=== PATIENT | female | born 1990 | race Caucasian/White ===

== ENCOUNTER 2020-04-01 09:09 | Inpatient (IN) | payer MEDICAID, OTHER ==
[~2020-04-01] VITALS: Ht 162.6 cm; Wt 70.5 kg
[2020-04-01 09:35] LABS: Basophils # (auto) 0 10 ^3/uL (0-0.2); Basophils % (auto) 0.3 % (0.0-2.0); Eosinophils # (auto) 0 10 ^3/uL (0-0.8); Eosinophils % (auto) 0.1 % (0.0-7.0); Hematocrit 42.2 % (36.0-46.0); Hemoglobin 14.3 g/dL (12.2-16.2); Lymphocytes % (auto) 11.3 % (10.0-50.0); Mean Corpuscular Hemoglobin 32.7 pg (28.0-32.0); Mean Corpuscular Hgb Conc. 33.9 g/dL (32.0-36.0); Mean Corpuscular Volume 96.4 fL (80.0-100.0); Monocytes # (auto) 0.3 10 ^3/uL (0-1.3); Monocytes % (auto) 3.3 % (0.0-12.0); Neutrophils # (auto) 7.8 10 ^3/uL (1.6-8.6); Platelet Count (auto) 210 10^3/uL (140-450); Red Blood Cells 4.37 10^6/uL (4.0-5.20); Red Cell Distribution Width 12.4 % (11.8-14.3); White Blood Cell 9.1 10^3/uL (4.4-10.8)
[2020-04-01] MEDS ORDERED: SODIUM CHLORIDE 0.9% 1,000 ML IV ONE ×2 (09:45→11:00)
[2020-04-01 09:56] LABS: Albumin 3.9 g/dL (3.4-5.0); Calcium 8.9 mg/dL (8.5-10.1); Potassium 3.5 mmol/L (3.5-5.1)
[2020-04-01 10:00] LABS: BUN/Creatinine Ratio 11.8; Bilirubin, Total 0.6 mg/dL (0.2-1.0); Total Protein 7.6 g/dL (6.4-8.2)
[2020-04-01] MEDS ORDERED: KETOROLAC TROMETH 30 MG/ML 1ML VIAL IV ONE ×2 (10:00→14:00)
[2020-04-01] MEDS ORDERED: ONDANSETRON HCL 4 MG/2 ML VIAL IV ONE (10:00)
[2020-04-01] MEDS ORDERED: cefTRIAXone 1GM/50ML D5W 50 ML IV ONE ×2 (10:45→16:15)
[2020-04-01] MEDS ORDERED: metroNIDAZOLE 500MG/100ML 100 ML IV ONE (10:45)
[2020-04-01 12:00] LABS: Urine Bacteria NONE SEEN /hpf (None Seen); Urine Blood Negative /uL (Negative); Urine Mucus FEW (None Seen); Urine Specific Gravity 1.029 (1.001-1.035); Urine WBC 1 /hpf (0 - 5)
[2020-04-01 12:08] LABS: Alcohol, Urine < 3.0 mg/dL (0-10)
[2020-04-01 12:20] LABS: Barbiturate Scree,Urine NEGATIVE (NEGATIVE); Benzodiazephine Screen, Urine NEGATIVE (NEGATIVE); Cocaine Screen, Urine NEGATIVE (NEGATIVE); Opiate Scree,Urine NEGATIVE (NEGATIVE); Phencyclidine Screen, Urine NEGATIVE (NEGATIVE)
[2020-04-01 12:43] LABS: Cannabinoid Screen, Urine POSITIVE (NEGATIVE)
[2020-04-01 12:44] LABS: Amphetamine Screen, Urine POSITIVE (NEGATIVE)
[2020-04-01] MEDS ORDERED: ACETAMINOPHEN 500 MG TAB PO PRN (16:15)
[2020-04-01] MEDS ORDERED: TEMAZEPAM 15 MG CAP PO PRN (16:15)
[2020-04-01] MEDS: SODIUM CHLORIDE 0.9% 1,000 ML IV SCH ×2 (16:17→21:36)
[2020-04-01] MEDS: PROMETHAZINE HCL 25 MG/ML 1ML IV PRN ×2 (16:28→23:59)
[2020-04-01] MEDS: MORPHINE SULF INJ 2 MG/ML SYRINGE 1ML IV PRN ×2 (16:29→23:58)
--- NOTE | 2020-04-01 19:30 | NUR ---
[facility] admit from ER AZEB ROMAN admitted to [facility]. Patient oriented to BAKARI BALLESTEROS, primary RN, unit, room, bed, and unit policies regarding patient care and visiting hours. Patient weighed by bedscale and encouraged to call if they need something. All questions and concerns addressed, patient verbalized understanding.
[2020-04-01 19:45] VITALS: BP 105/61
[2020-04-01] MEDS: metroNIDAZOLE 500MG/100ML 100 ML IV SCH (21:35)
[2020-04-01] MEDS: FAMOTIDINE 20 MG TAB PO SCH (21:36)
[2020-04-01] MEDS: traMADol HCL 50 MG TAB PO PRN (21:36)
[2020-04-01 22:00] VITALS: BP 105/61
[2020-04-02] MEDS: traMADol HCL 50 MG TAB PO PRN ×2 (04:16→22:16)
[2020-04-02 05:00] VITALS: BP 99/44
--- NOTE | 2020-04-02 05:07 | NUR ---
ROSA CALLS UNIT FOR PATIENT UPDATE COMPLETE SBAR GIVEN INCLUDING PATIENT STATUS, TRENDING VS, LABS, READ IMAGING RESULTS AND PENDING GI CONSULTATION. VERBALIZED UNDERSTANDING PER ROSA KEEP PATIENT NPO AND HE WILL BE IN LATER TODAY TO SEE PATIENT.
[2020-04-02 05:21] VITALS: BP 109/57
[2020-04-02] MEDS: metroNIDAZOLE 500MG/100ML 100 ML IV SCH ×3 (05:49→21:00)
[2020-04-02 07:23] LABS: Albumin 2.7 g/dL (3.4-5.0); Calcium 7.5 mg/dL (8.5-10.1); Potassium 3.5 mmol/L (3.5-5.1)
[2020-04-02 07:26] LABS: Bilirubin, Total 0.3 mg/dL (0.2-1.0); Total Protein 5.6 g/dL (6.4-8.2)
--- NOTE | 2020-04-02 07:30 | NUR ---
Opening Shift Note Assumed care of patient, awake and alert. No S/S of distress/SOB. VERBALIZED ABDOMINAL DISCOMFORT AND SOME PAIN. Instructed on POC and to call for assist PRN, will continue to monitor for changes Q1hr and PRN.
[2020-04-02 09:00] VITALS: BP 104/65
[2020-04-02] MEDS: FAMOTIDINE 20 MG TAB PO SCH ×2 (10:02→21:01)
[2020-04-02] MEDS: cefTRIAXone 1GM/50ML D5W 50 ML IV SCH (10:02)
[2020-04-02] MEDS: SODIUM CHLORIDE 0.9% 1,000 ML IV SCH ×2 (10:03→21:01)
[2020-04-02] MEDS: MORPHINE SULF INJ 2 MG/ML SYRINGE 1ML IV PRN ×3 (11:19→20:50)
[2020-04-02 13:00] VITALS: BP_SYST 96; BP_SYST 98; BP_DIAS 58; BP_DIAS 60
[2020-04-02 13:56] LABS: INR 1.18 (0.9-1.15)
--- NOTE | 2020-04-02 15:53 | NUR ---
DR Bulmaro ODELL AT [facility]. Addendum: 04/02/20 at 1554 by Cally Seymour RN DR ODELL AT [facility] AT 1430
--- NOTE | 2020-04-02 16:04 | NUR ---
assessment re: ss consult positive UDS Patient is a 29 year old female who is alert and oriented. Patients cognitive abilities are intact. Prior to admission patient lived home with family and functioned independently. Patient informed me she is able to care for her own ADLs. Per patient she will return home to her prior living arrangements post discharge and family will transport her home. I informed patient she has a ss consult for history of and current UDS for amphetamines and THC. Patient denies amphetamine use and admits to THC. Patient states she has no problem with smoking marijuana and does not need resources i offered her. I informed patient she has a right to speak to a psychotherapist social worker regarding all care. I informed patient she has a right to participate in any and all discharge planning. Patient does not have a POA and advanced directive. I have offered patient information on POA and advanced directives. I informed the patient the advantages and benefits of having an Advanced Directive. Patient verbalized understanding and agreed to discharge plan. Addendum: 04/02/20 at 1619 by Eli SALVADOR Amended: Links added.
--- NOTE | 2020-04-02 16:52 | NUR ---
AMA TO SMOKE ON FILE
--- NOTE | 2020-04-02 16:52 | NUR ---
tOpening Shift Note Assumed care of patient, awake and alert. No S/S of distress/SOB or pain. Insructed on POC and to call for assist PRN, will continue to monitor for changes Q1hr and PRN. Addendum: 04/02/20 at 1653 by Cally Seymour RN WRONG NOTES
[2020-04-02 17:00] VITALS: BP 98/60
--- NOTE | 2020-04-02 19:46 | NUR ---
Received report from MAJOR Alamo. Pt in bed resting A&o x3, respirations even and unlabored no signs of distress noted. safety checks, bed at lowest position, wheel locked, call light within reach, no clutter on floor
[2020-04-02 21:16] LABS: Urine Bacteria NONE SEEN /hpf (None Seen); Urine Blood Negative /uL (Negative); Urine Mucus FEW (None Seen); Urine Specific Gravity 1.024 (1.001-1.035); Urine WBC 13 /hpf (0 - 5)
[2020-04-02 22:00] VITALS: BP 107/54
[2020-04-02] MEDS: PROMETHAZINE HCL 25 MG/ML 1ML IV PRN (22:14)
[2020-04-03 04:41] VITALS: BP 100/57
[2020-04-03] MEDS ORDERED: DOCUSATE SOD 100 MG CAP PO PRN (06:00)
[2020-04-03] MEDS: traMADol HCL 50 MG TAB PO PRN (06:16)
[2020-04-03] MEDS: metroNIDAZOLE 500MG/100ML 100 ML IV SCH (06:23)
[2020-04-03 06:29] LABS: Basophils # (auto) 0 10 ^3/uL (0-0.2); Eosinophils # (auto) 0.1 10 ^3/uL (0-0.8); Eosinophils % (auto) 2.6 % (0.0-7.0); Hematocrit 30.9 % (36.0-46.0); Hemoglobin 10.7 g/dL (12.2-16.2); Lymphocytes # (auto) 1.3 10 ^3/uL (0.4-5.4); Mean Corpuscular Hemoglobin 33.6 pg (28.0-32.0); Mean Corpuscular Hgb Conc. 34.8 g/dL (32.0-36.0); Mean Corpuscular Volume 96.7 fL (80.0-100.0); Monocytes # (auto) 0.3 10 ^3/uL (0-1.3); Monocytes % (auto) 10.4 % (0.0-12.0); Neutrophils # (auto) 1.5 10 ^3/uL (1.6-8.6); Platelet Count (auto) 169 10^3/uL (140-450); Red Blood Cells 3.19 10^6/uL (4.0-5.20); Red Cell Distribution Width 12.3 % (11.8-14.3); White Blood Cell 3.2 10^3/uL (4.4-10.8)
[2020-04-03 06:43] LABS: Calcium 7.4 mg/dL (8.5-10.1); Potassium 3.3 mmol/L (3.5-5.1)
[2020-04-03 06:45] LABS: BUN/Creatinine Ratio 13.7
--- NOTE | 2020-04-03 07:26 | NUR ---
Report given to MAJOR Lanier. Pt in bed with eyes closed, respirations even and unlabored, face expression relaxed, no signs of distress. Bed at lowest position, wheels locked, call light within reach, floor free of clutter.
[2020-04-03] MEDS: cefTRIAXone 1GM/50ML D5W 50 ML IV SCH (08:58)
[2020-04-03] MEDS: FAMOTIDINE 20 MG TAB PO SCH (08:58)
[2020-04-03 09:00] VITALS: BP 116/66
[2020-04-03] MEDS: SODIUM CHLORIDE 0.9% 1,000 ML IV SCH (10:14)
--- NOTE | 2020-04-03 11:23 | NUR ---
Spoke to Dr. Troy regarding patient wants to discuss about care plan. Per Dr. Troy he will reach dr. Ortiz.
--- NOTE | 2020-04-03 12:03 | NUR ---
AMA Note AZEB ROMAN states they want to leave the hospital Against Medical Advice (AMA). Patient encouraged to stay for further treatment/stabilization. Sydni CUNNINGHAM notified of patient's wishes. Guanako HATHAWAY notified. Patient advised of the risks and benefits of leaving AMA. Patient verbalized understanding. Patient encouraged to return to the ER if symptoms do not improve or worsen.
[2020-04-03] MEDS ORDERED: SENNA 8.6 MG TAB PO SCH (22:00)
[2020-04-04] MEDS ORDERED: GOLYTELY 4L KIT PO ONE (10:00)
== END 2020-04-03 12:20 | disposition left against medical advice (07) | DRG 251 ==
LOC: ER 09:09 → OVERFLOW 09:10 → CENTRAL 19:31
PROVIDERS: ADMIT Internal Medicine; ATTEND Internal Medicine
DX: R10.31 Right lower quadrant pain (principal); E44.0 Moderate protein-calorie malnutrition; K76.0 Fatty (change of) liver, not elsewhere classified; E87.1 Hypo-osmolality and hyponatremia; R16.0 Hepatomegaly, not elsewhere classified; K52.9 Noninfective gastroenteritis and colitis, unspecified; I88.0 Nonspecific mesenteric lymphadenitis; R73.9 Hyperglycemia, unspecified; F12.90 Cannabis use, unspecified, uncomplicated; F15.10 Other stimulant abuse, uncomplicated; Z68.26 Body mass index [BMI] 26.0-26.9, adult; Z80.0 Family history of malignant neoplasm of digestive organs; Z80.41 Family history of malignant neoplasm of ovary; Z98.51 Tubal ligation status
CPT/HCPCS: 36415; 74176; 74181; 76705; 80048; 80053; 80307; 81001; 81025; 82150; 83036; 83605; 83690; 84443; 85025; 85610; 87040; 87086; 96365; 96366; 96368; 96375; 96376; 99291; G0378; J0696; J1885; J2405; J3490

== ENCOUNTER 2022-12-06 11:02 | Emergency (ER) | payer MEDICAID ==
[~2022-12-06] VITALS: Ht 165.1 cm; Wt 74.0 kg
[2022-12-06 11:52] LABS: Urine Bacteria FEW /hpf (None Seen); Urine Blood Negative /uL (Negative); Urine Specific Gravity 1.016 (1.001-1.035); Urine WBC 10 /hpf (0 - 5)
[2022-12-06 11:53] LABS: Basophils # (auto) 0 10 ^3/uL (0-0.2); Basophils % (auto) 0.8 % (0.0-2.0); Eosinophils # (auto) 0.2 10 ^3/uL (0-0.8); Eosinophils % (auto) 2.7 % (0.0-7.0); Hemoglobin 13.6 g/dL (12.2-16.2); Lymphocytes # (auto) 1.7 10 ^3/uL (0.4-5.4); Lymphocytes % (auto) 29.5 % (10.0-50.0); Mean Corpuscular Hemoglobin 32.7 pg (28.0-32.0); Mean Corpuscular Hgb Conc. 33.3 g/dL (32.0-36.0); Mean Corpuscular Volume 98.1 fL (80.0-100.0); Monocytes # (auto) 0.5 10 ^3/uL (0-1.3); Monocytes % (auto) 9.3 % (0.0-12.0); Neutrophils # (auto) 3.3 10 ^3/uL (1.6-8.6); Neutrophils % (auto) 57.7 % (37.0-80.0); Nucleated Red Blood Cells % 0.1 %; Red Blood Cells 4.18 10^6/uL (4.0-5.20); Red Cell Distribution Width 12.5 % (11.8-14.3); White Blood Cell 5.7 10^3/uL (4.4-10.8)
[2022-12-06 12:08] LABS: Albumin 3.7 g/dL (3.4-5.0); Calcium 8.6 mg/dL (8.5-10.1)
[2022-12-06 12:11] LABS: BUN/Creatinine Ratio 12.5; Bilirubin, Total 0.4 mg/dL (0.2-1.0); Total Protein 6.5 g/dL (6.4-8.2)
[2022-12-06 12:38] VITALS: BP 133/86
[2022-12-06] MEDS ORDERED: cefTRIAXone SOD 1,000 MG VL IM ONE (12:45)
[2022-12-06] MEDS ORDERED: KETOROLAC TROMETH 60MG/2ML VIAL IM ONE (12:45)
[2022-12-06] MEDS ORDERED: IBUP800T27 PO (13:10)
[2022-12-06] MEDS ORDERED: CIPR-173 PO (13:10)
[2022-12-06 23:16] LABS: Potassium 4.1 mmol/L (3.5-5.1)
== END 2022-12-06 13:17 | disposition home or self-care (01) ==
LOC: ER 11:02
DX: N39.0 Urinary tract infection, site not specified (principal); F17.210 Nicotine dependence, cigarettes, uncomplicated; Z86.73 Personal history of transient ischemic attack (TIA), and cerebral infarction without residual deficits; Z79.1 Long term (current) use of non-steroidal anti-inflammatories (NSAID); Z79.2 Long term (current) use of antibiotics
CPT/HCPCS: 36415; 80053; 81001; 85025; 96372; 99284; J0696; J1885

== ENCOUNTER 2022-12-15 15:23 | Emergency (ER) | payer MEDICAID ==
[~2022-12-15] VITALS: Ht 165.1 cm; Wt 76.8 kg
[~2022-12-15 15:23] MED LIST: CIPR-173 PO; IBUP800T27 PO
[2022-12-15] MEDS ORDERED: ONDANSETRON ODT 4 MG TAB PO ONE (15:30)
[2022-12-15 16:00] LABS: Basophils # (auto) 0.1 10 ^3/uL (0-0.2); Basophils % (auto) 0.9 % (0.0-2.0); Eosinophils # (auto) 0.2 10 ^3/uL (0-0.8); Eosinophils % (auto) 3.1 % (0.0-7.0); Hematocrit 40.2 % (36.0-46.0); Hemoglobin 13.8 g/dL (12.2-16.2); Lymphocytes # (auto) 1.9 10 ^3/uL (0.4-5.4); Lymphocytes % (auto) 31.8 % (10.0-50.0); Mean Corpuscular Hemoglobin 33.3 pg (28.0-32.0); Mean Corpuscular Hgb Conc. 34.2 g/dL (32.0-36.0); Mean Corpuscular Volume 97.2 fL (80.0-100.0); Monocytes # (auto) 0.5 10 ^3/uL (0-1.3); Monocytes % (auto) 8.8 % (0.0-12.0); Neutrophils # (auto) 3.3 10 ^3/uL (1.6-8.6); Neutrophils % (auto) 55.4 % (37.0-80.0); Nucleated Red Blood Cells % 0.2 %; Red Blood Cells 4.14 10^6/uL (4.0-5.20); Red Cell Distribution Width 12.6 % (11.8-14.3)
[2022-12-15 16:15] LABS: Calcium 9.2 mg/dL (8.5-10.1); Magnesium 1.9 mg/dL (1.6-2.6); Potassium 3.8 mmol/L (3.5-5.1)
[2022-12-15 16:18] LABS: BUN/Creatinine Ratio 19.3; Bilirubin, Total 0.2 mg/dL (0.2-1.0); Total Protein 6.9 g/dL (6.4-8.2)
[2022-12-15 16:47] LABS: Urine Bacteria NONE SEEN /hpf (None Seen); Urine Blood Negative /uL (Negative); Urine Specific Gravity 1.016 (1.001-1.035); Urine WBC 3 /hpf (0 - 5)
[2022-12-15] MEDS ORDERED: NITR-87 PO (17:49)
[2022-12-15] MEDS ORDERED: TRAM-297 PO (17:49)
[2022-12-15 21:02] VITALS: BP 112/67
== END 2022-12-15 21:03 | disposition home or self-care (01) ==
LOC: ER 15:26
DX: N39.0 Urinary tract infection, site not specified (principal); Z79.899 Other long term (current) drug therapy; F17.210 Nicotine dependence, cigarettes, uncomplicated; Z86.73 Personal history of transient ischemic attack (TIA), and cerebral infarction without residual deficits; Z98.51 Tubal ligation status
CPT/HCPCS: 36415; 74176; 80053; 81001; 83690; 83735; 85025; 99284; Q0162

== ENCOUNTER 2024-11-09 12:11 | Emergency (ER) | payer MEDICAID ==
[~2024-11-09] VITALS: Ht 162.6 cm; Wt 97.7 kg
[~2024-11-09 12:11] MED LIST changes: +IBUP-1456 PO; -IBUP800T27 PO; +NITR-87 PO; +TRAM-297 PO
[2024-11-09 12:25] VITALS: TEMP 98.6
--- NOTE | 2024-11-09 12:26 | ED.PDOC ---
History of Present Illness HPI Comments 34 year old female presents to the ED with a chief complaint of tooth pain onset 6 days. Patient states she had a tooth extraction on Sunday, has been experiencing pain since. Patient has tried to get in contact with Dentist but has not been able to. She was seen by a different dentist 3 days ago and was mallory d she had a possible fracture. Patient rates pain 10/, has been taking antibiotics, Tylenol and Ibuprofen. No other symptoms or modifying factors present at this time. Time Seen by MD: 12:15 Primary Care Provider: Hi Bajwa Notes: Medications, Allergies Allergies: Coded Allergies: NO KNOWN ALLERGIES (Unverified , 04/01/20) Home Meds Active Scripts Nitrofurantoin Monohydrate Mac (Macrobid) 100 Mg Cap, 100 MG PO BID for 7 Days, #14 CAP Prov:JOANA MENDES MD 12/15/22 Tramadol Hcl (Ultram) 50 Mg Tab, 1 TAB PO Q6HR, #30 TAB Prov:JOANA MENDES MD 12/15/22 Ibuprofen (Ibuprofen) 800 Mg Tab, 1 TAB PO TID, #30 TAB Prov:KIP SHARIF 12/06/22 Ciprofloxacin Hcl (Cipro) 500 Mg Tab, 1 TAB PO BID, #20 TAB Prov:KIP SHARIF 12/06/22 Information Source: Patient Mode of Arrival: Ambulatory Severity: Moderate Timing: Days Duration: Since onset Prehospital treatment: Pain Meds Past Medical History PAST MEDICAL HISTORY: TIA Surgical History: Tubal Ligation FIELD RECRUITER History: No Pertinent FIELD RECRUITER History Family History Family History: Reviewed,noncontributory to illness Social History Smoker: Quit Greater Than 1 Year, Cigarettes Alcohol: Denies ETOH Use Drugs: Denies Drug Use Lives In: Home EENTM: reports: others (Tooth pain ) Physical Exam General Appearance: Moderate Distress HEENT: Normal ENT Inspection, Pharynx Normal, TMs Normal Neck: Full Range of Motion, Non-Tender, Normal, Normal Inspection Respiratory: Chest Non-Tender, Lungs Clear, No Accessory Muscle Use, No Respiratory Distress, Normal Breath Sounds Cardiovascular: No Edema, No JVD, No Murmur, No Gallop, Normal Peripheral Pulses, Regular Rate/Rhythm Breast Exam: Deferred Gastrointestinal: No Organomegaly, Non Tender, No Pulsatile Mass, Normal Bowel Sounds, Soft Genitalia: Deferred Pelvic: Deferred Rectal: Deferred Extremities: No calf tenderness, Normal capillary refill, Normal inspection, Normal range of motion, Non-tender, No pedal edema Musculoskeletal : Apperance: Normal Neurologic: Alert, ambulance mechanic II-XII nml as Tested, No Motor Deficits, Normal Affect, Normal Mood, No Sensory Deficits Cerebellar Function: Normal Reflexes: Normal Skin: Dry, Normal Color, Warm Peripheral Pulses: 3+ Radial (R), 3+ Radial (L) Lymphatic: No Adenopathy Was a procedure done? Was a procedure done?: No Differential Dx Considerations may include: Dental caries Gingivitis X-Ray, Labs, Meds, VS Vital Signs Date Time Temp Pulse Resp B/P (MAP) Pulse Ox O2 Delivery O2 Flow Rate FiO2 11/09/24 12:36 98.6 66 16 116/68 (84) 96 11/09/24 12:25 66 16 96 Room Air 11/09/24 12:25 98.6 66 16 116/68 (84) 96 98.6 Patient alert. Recently had dental procedure. Complaining of tooth pain. Vitals stable. Answering all questions. On examination no sign of any infection. No sepsis. States that her mandible maybe affected. Explained to the patient that we can do x-rays. She insists on going to facility that has a dental. Explained to the patient. Was told to follow up with her primary care physician. Was told to come back if there is any problem. Time of 1ST Reevaluation: 12:45 Reevaluation 1ST: Unchanged Patient Education/Counseling: Diagnosis, Treatment, Prognosis Family Education/Counseling: No Family Present Departure 1 Departure Time of Disposition: 17:36 Impression: Primary Impression: Dental caries Disposition: 30 STILL A PATIENT Condition: Good Discharged With: Self Critical Care Note Critical Care Time?: No Stability Stability form required: No Heart Score Heart Score: Heart Score Response (Comments) Value History N/A 0 EKG N/A 0 Age N/A 0 Risk Factors N/A 0 Troponin N/A 0 Total 0 I personally scribed for YEIMI JEAN BAPTISTE MD ([email or web address]) on 11/09/24 at 12:26. Electronically submitted by Rochelle Teixeira ([email or web address]). YEIMI JEAN BAPTISTE MD Nov 09, 2024 12:26
[2024-11-09 12:36] VITALS: BP 116/68; PULSE 66; RESP 16; O2SAT 96
== END 2024-11-09 13:24 | disposition home or self-care (01) ==
LOC: ER 12:11
DX: K02.9 Dental caries, unspecified (principal); Z86.73 Personal history of transient ischemic attack (TIA), and cerebral infarction without residual deficits; Z79.1 Long term (current) use of non-steroidal anti-inflammatories (NSAID); Z79.899 Other long term (current) drug therapy; Z87.891 Personal history of nicotine dependence; Z98.51 Tubal ligation status